=== PATIENT | male | born 1995 | race Caucasian/White ===

== ENCOUNTER 2018-12-14 19:17 | Emergency (ER) | payer MEDICAID ==
[~2018-12-14] VITALS: Ht 177.8 cm; Wt 118.0 kg
[2018-12-14] MEDS ORDERED: VISCOUS LIDOCAINE 2% 15 ML UDC PO ONE (21:30)
[2018-12-14] MEDS ORDERED: MAGNESIUM/ALUMINUM HYDROXIDE/SIMETHICONE 30ML UDC PO ONE (21:30)
[2018-12-15 00:13] VITALS: BP 145/89
== END 2018-12-15 00:15 | disposition home or self-care (01) ==
LOC: ER 19:28
DX: R07.89 Other chest pain (principal); J45.909 Unspecified asthma, uncomplicated
CPT/HCPCS: 36415; 71045; 84484; 93005; 99284